=== PATIENT | female | born 1970 | race Caucasian/White ===

== ENCOUNTER 2018-02-28 11:42 | Emergency (ER) | payer BC ==
[2018-02-28 12:01] VITALS: BP 162/88
--- NOTE | 2018-02-28 12:32 | UC ---
Skin Complaint HPI - HPI Summary HPI Summary: left foot pain x 2 weeks dropped a plate on her left foot 2 weeks ago , had a small abrasion on top of her foot, the area is red, swollen, tender and no healing well - History of Current Complaint Chief Complaint: UCLowerExtremity Time Seen by Provider: 02/28/18 12:01 Stated Complaint: LEFT FOOT COMPLAINT Hx Obtained From: Patient Hx Last Menstrual Period: 02/11/18 ?: No Onset/Duration: Sudden Onset, Lasting Weeks - 2, Still Present Timing: Constant Onset Severity: Moderate Current Severity: Moderate Pain Intensity: 4 Location: Discrete - left foot Character: Swelling, Pain, Redness, Raised, Painful Aggravating Factor(s): Touch, Other - walking Alleviating Factor(s): Nothing Associated Signs & Symptoms: Positive: Tenderness. Negative: Fever, Chills, Drainage Related History: Trauma - Allergy/Home Medications Allergies/Adverse Reactions: Allergies Allergy/AdvReac Type Severity Reaction Status Date / Time No Known Allergies Allergy Verified 02/28/18 11:58 Review of Systems Constitutional: Negative Skin: Negative Eyes: Negative ENT: Negative Is Patient Immunocompromised?: No All Other Systems Reviewed And Are Negative: Yes PMH/Surg Hx/FS Hx/Imm Hx Previously Healthy: Yes - Surgical History Surgical History: Yes Surgery Procedure, Year, and Place: appendectomy 1999 - Family History Known Family History: Negative: Diabetes - Social History Alcohol Use: Rare Substance Use Type: None Smoking Status (MU): Never Smoked Tobacco Physical Exam Triage Information Reviewed: Yes Appearance: Well-Appearing, No Pain Distress, Well-Nourished Vital Signs: Initial Vital Signs Temp 99.4 F 02/28/18 11:56 Pulse 96 02/28/18 11:56 Resp 16 02/28/18 11:56 BP 162/88 02/28/18 11:56 Pulse Ox 100 02/28/18 11:56 Vital Signs Reviewed: Yes Eye Exam: Normal Eyes: Positive: Conjunctiva Clear ENT: Positive: Normal ENT inspection, Hearing grossly normal, Pharynx normal Neck: Positive: Supple, Nontender, No Lymphadenopathy Respiratory: Positive: Chest non-tender, Lungs clear, Normal breath sounds Cardiovascular: Positive: RRR, No Murmur, Pulses Normal Skin: Positive: Other - left foot : + abrasion , + erythema, swelling, tender to touch , Diagnostics - Laboratory Diagnostic Studies Completed/Ordered: left foot xray : IMPRESSION: MILD DEGENERATIVE CHANGES. NO RADIOPAQUE FOREIGN BODY. NO ACUTE OSSEOUS INJURY. IF. SYMPTOMS PERSIST, RECOMMEND REPEAT IMAGING. Course/Dx - Diagnoses Provider Diagnoses: cellulitis left foot Discharge - Sign-Out/Discharge Documenting (check all that apply): Patient Departure All imaging exams completed and their final reports reviewed: No Studies - Discharge Plan Condition: Stable Disposition: HOME Prescriptions: Cephalexin CAP* [Keflex CAP*] 500 mg PO TID #30 cap Patient Education Materials: Cellulitis (ED) Referrals: Yamel Leal NP [Primary Care Provider] - 7 Days - Billing Disposition and Condition Condition: STABLE Disposition: Home
== END 2018-02-28 12:33 | disposition home or self-care (01) ==
LOC: UCCORT 11:42
DX: S90.812A Abrasion, left foot, initial encounter (principal); L03.116 Cellulitis of left lower limb; W20.8XXA Other cause of strike by thrown, projected or falling object, initial encounter; Y92.9 Unspecified place or not applicable; M19.072 Primary osteoarthritis, left ankle and foot; M77.32 Calcaneal spur, left foot
CPT/HCPCS: 99202; G0463

== ENCOUNTER 2019-06-25 15:47 | Emergency (ER) | payer BC ==
[2019-06-25 16:19] VITALS: BP 146/83
--- NOTE | 2019-06-25 16:51 | UC ---
Throat Pain/Nasal Jimmy HPI - HPI Summary HPI Summary: 48-year-old female who noted what she thinks might be an enlarged taste buds on the right side of her tongue over the past few days. She states it is only tender when she bites on it. She denies any fever or chills. - History of Current Complaint Chief Complaint: UCDentalProblem Stated Complaint: TOUNGE COMP Time Seen by Provider: 06/25/19 16:46 Hx Obtained From: Patient Hx Last Menstrual Period: less than 28 days ago ?: No Onset/Duration: Gradual Onset, Lasting Days Severity: Mild Pain Intensity: 1 Associated Signs & Symptoms: Positive: Negative - Allergies/Home Medications Allergies/Adverse Reactions: Allergies Allergy/AdvReac Type Severity Reaction Status Date / Time sumatriptan [From Imitrex] Allergy Rash Verified 06/25/19 16:20 Home Medications: Home Medications Acetaminophen [Acetaminophen Extra Strength] 1,500 mg PO Q12H PRN 06/25/19 [ History Confirmed 06/25/19] Sertraline* [Zoloft*] 25 mg PO BEDTIME 06/25/19 [History Confirmed 06/25/19] PMH/Surg Hx/FS Hx/Imm Hx Previously Healthy: Yes Neurological History: Migraine - Surgical History Surgical History: Yes Surgery Procedure, Year, and Place: appendectomy 1999 - Family History Known Family History: Positive: None Negative: Diabetes - Social History Occupation: Employed Full-time Lives: With Family Alcohol Use: Rare Substance Use Type: None Smoking Status (MU): Never Smoked Tobacco Review of Systems All Other Systems Reviewed And Are Negative: Yes Skin: Positive: Other - Patient has a lump on the right side of her tongue. She is a nonsmoker. Is Patient Immunocompromised?: No Physical Exam Triage Information Reviewed: Yes Appearance: Well-Appearing, No Pain Distress, Well-Nourished Vital Signs: Initial Vital Signs Temp 99.3 F 06/25/19 16:08 Pulse 80 06/25/19 16:08 Resp 18 06/25/19 16:08 BP 146/83 06/25/19 16:08 Pulse Ox 100 06/25/19 16:08 Vital Signs Reviewed: Yes Eyes: Positive: Conjunctiva Clear ENT: Positive: Pharynx normal, TMs normal, Uvula midline, Other - The patient has what appears to be a possible mucocele on the right side of her tongue measuring only approximately 2 or 3 mm in diameter. There is no cellulitis and no swelling of the tongue. It's somewhat firm on palpation. Neck: Positive: Supple, Nontender, No Lymphadenopathy Musculoskeletal Exam: Normal Neurological Exam: Normal Psychological Exam: Normal Skin: Positive: Other - See above notes Throat Pain/Nasal Course/Dx - Course Course Of Treatment: Although this looks like an innocent mucocele, I did refer the patient to an ear nose and throat physician either in [place] because she's local or in [place]. Patient is agreeable to this and she will make an appointment over the next day or 2. - Differential Dx/Diagnosis Provider Diagnosis: Mucocele of tongue Discharge ED - Sign-Out/Discharge Documenting (check all that apply): Patient Departure All imaging exams completed and their final reports reviewed: No Studies - Discharge Plan Condition: Good Disposition: HOME Referrals: Yamel Leal NP [Primary Care Provider] - Jermain Dowell MD [Medical Doctor] - Additional Instructions: Avoid chewing on the cystic area. Definite follow-up with Dr. Dowell by telephone tomorrow to make an appointment for recheck. May take Tylenol or Advil for pain. - Billing Disposition and Condition Condition: GOOD Disposition: Home - Attestation Statements Provider Attestation: This patient was not seen by me. I was available for consult. Chart reviewed. CHANDLER
== END 2019-06-25 16:57 | disposition home or self-care (01) ==
LOC: UCCORT 15:47
DX: K13.79 Other lesions of oral mucosa (principal); Z88.8 Allergy status to other drugs, medicaments and biological substances
CPT/HCPCS: 99211; G0463